=== PATIENT | female | born 1995 | race Caucasian/White ===

== ENCOUNTER 2017-07-01 22:40 | Emergency (ER) | payer MEDICAID ==
[~2017-07-01] VITALS: Ht 144.8 cm; Wt 78.5 kg
[2017-07-01 22:52] VITALS: BP_SYST 127
--- NOTE | 2017-07-01 22:55 | NUR ---
Pt on stable condition, per charge nurse pt stable to wait in the waiting room at this time, no active vomiting, pt denies bleeding, skin pink and warm, respirations even and unlabored,pt is acoompanied by
--- NOTE | 2017-07-02 00:58 | NUR ---
Patient resting in bed, no acute distress noted. C/O N/V x 1 day and weakness from "throwing up". Patient able to fall asleep in bed. Vital signs stable. Will continue to monitor.
--- NOTE | 2017-07-02 00:58 | NUR ---
Placed in room Hallway 1. Side rails up. Report given to JEN Marcus.
--- NOTE | 2017-07-02 01:35 | NUR ---
Dr Apodaca at bedside to evaluate patient.
[2017-07-02] MEDS ORDERED: ONDANSETRON 4 MG ODT TAB PO ONE (01:45)
--- NOTE | 2017-07-02 02:30 | NUR ---
Patient resting quietly in no acute distress, respirations even and unlabored. Urine sample provided and sent to lab. NO adverse reaction noted to medication.
[2017-07-02 02:32] LABS: BILIRUBIN,URINE NEGATIVE (NEGATIVE); BLOOD, URINE TRACE (NEGATIVE); CLARITY/URINE CLEAR (CLEAR); COLOR,URINE YELLOW (YELLOW); GLUCOSE,URINE NEGATIVE (NEGATIVE); KETONES,URINE NEGATIVE (NEGATIVE); LEUKOCYTE ESTERASE ,URINE NEGATIVE (NEGATIVE); NITRITE, URINE NEGATIVE (NEGATIVE); PROTEIN URINE NEGATIVE (NEGATIVE); UROBILINOGEN,URINE 0.2 (0.2-1.0)
[2017-07-02 02:39] LABS: BACTERIA,URINE FEW /HPF (None Seen); RBC,URINE 0-3 /HPF (0-3); WBC,URINE 0-3 /HPF (0-3)
--- NOTE | 2017-07-02 02:55 | NUR ---
Patient given written and verbal discharge instructions and verbalizes understanding. ER MD discussed with patient the results and treatment provided. Patient in stable condition. ID arm band removed. Rx of Louis Huff given. Patient educated on pain management and to follow up with PMD. Pain Scale 2. Opportunity for questions provided and answered. Patient left ER ambulating with slow, steady gait in no acute distress. Patient left ER with friend. No adverse reaction noted to medication.
[2017-07-02 02:59] VITALS: BP_SYST 120
== END 2017-07-02 02:55 | disposition home or self-care (01) ==
LOC: SED 22:40
DX: K52.9 Noninfective gastroenteritis and colitis, unspecified (principal); Z88.0 Allergy status to penicillin; F17.200 Nicotine dependence, unspecified, uncomplicated
CPT/HCPCS: 81000; 81025; 99283; Q0162